=== PATIENT | male | born 1945 | race Caucasian/White ===

== ENCOUNTER 2024-05-22 08:13 | Inpatient (IN) | payer OTHER ==
[~2024-05-22] VITALS: Ht 182.9 cm; Wt 99.8 kg
[2024-05-22] VITALS (24 sets, daily range): BP systolic 47–107; BP diastolic 26–61
[2024-05-22] MEDS ORDERED: SODIUM CHLORIDE 0.9% 1,000 ML IV ONE ×2 (08:40→10:30)
[2024-05-22] MEDS ORDERED: ASPIRIN 81 MG/TAB PO ONE (08:45)
[2024-05-22] MEDS ORDERED: ONDANSETRON HCl 4 MG/2 ML SDV IV ONE (08:45)
[2024-05-22 09:19] LABS: ALBUMIN 3.5 g/dL (3.2-5.0); BASO% 0.1 % (0-3); BILIRUBIN, TOTAL 1.6 mg/dL (0.2-1.3); CREATININE 1.3 mg/dL (0.7-1.3); HEMATOCRIT 35.2 % (39.0-50.0); IMMATURE GRANULOCYTES 2.4 % (0.0-5.0); LYMPH% 6.7 % (15-41); MEAN CELL VOLUME 92.6 fL CALC (80.0-100.0); MEAN CORPUSCULAR HGB 31.6 pG CALC (26.0-32.0); MEAN CORPUSCULAR HGB CONC 34.1 g/dL CAL (32.0-36.0); MONO% 7.2 % (2-13); NEUT# 23.11 thou/uL (1.82-7.42); NEUT% 83.6 % (42-76); POTASSIUM 4.2 mmol/l (3.5-5.1); RED BLOOD COUNT 3.8 mill/uL (4.70-6.10); RED CELL DISTRI WIDTH 12.8 % (11.5-15.5); TOTAL PROTEIN 6.2 g/dL (6.3-8.2)
[2024-05-22] MEDS ORDERED: Levofloxacin 750 mg Premix 150 ML IV ONE (09:30)
[2024-05-22] MEDS ORDERED: MECLIZINE25 MG PO (11:00)
[2024-05-22] MEDS ORDERED: COZAAR25 MG PO (11:02)
[2024-05-22] MEDS ORDERED: TRILEPTAL150 MG PO (11:03)
[2024-05-22] MEDS ORDERED: VENTOLIN HFA108 MCG IN (11:04)
[2024-05-22] MEDS ORDERED: MONTELUKAST SOD10 MG PO (11:05)
[2024-05-22] MEDS ORDERED: FINASTERIDE5 MG PO (11:05)
[2024-05-22] MEDS ORDERED: METFORMIN500 M2 PO (11:06)
[2024-05-22] MEDS ORDERED: PRAVASTATIN SOD10 MG PO (11:06)
[2024-05-22 12:05] LABS: URINE BILIRUBIN - DIPSTICK Negative (NEGATIVE); URINE BLOOD DIPSTICK Negative (NEGATIVE); URINE GLUCOSE - DIPSTICK Negative (NEGATIVE); URINE KETONE Negative (NEGATIVE); URINE LEUK ESTERASE Negative (NEGATIVE); URINE NITRITE - DIPSTICK Negative (Negative); URINE PH 5.5 (4.5-8.0); URINE PROTEIN - DIPSTICK Negative (NEG-TRACE); URINE UROBILINOGEN - DIPSTICK 0.2 E.U./dL (0.2)
[2024-05-22 12:11] LABS: URINE COLOR Yellow
[2024-05-22] MEDS ORDERED: IPRATROPIUM-Albuterol 0.5MG-2.5MG/3 ML NEB PRN (12:30)
[2024-05-22] MEDS ORDERED: SODIUM CHLORIDE 0.9% 1,000 ML IV PRN (12:30)
[2024-05-22] MEDS ORDERED: ACETAMINOPHEN 325 MG/TAB PO PRN (12:30)
[2024-05-22] MEDS ORDERED: MAGNESIUM HYDROXIDE 30 ML UDC PO PRN (12:30)
[2024-05-22] MEDS ORDERED: IPRATROPIUM-Albuterol 0.5MG-2.5MG/3 ML NEB ONE (12:40)
[2024-05-22] MEDS ORDERED: ALBUTEROL SULFATE 2.5 MG VIAL NEB ONE (12:40)
[2024-05-22] MEDS ORDERED: LEVOTHYROXIN75 MCG PO (13:06)
[2024-05-22] MEDS ORDERED: XOPENEX HFA45 MCG IN (13:06)
[2024-05-22] MEDS ORDERED: TAMSULOSIN0.4 MG PO (13:25)
[2024-05-22] MEDS ORDERED: methylPREDNISolone Sod Succ 40 MG/ML SDV IV SCH (14:00)
[2024-05-22] MEDS ORDERED: TAMSULOSIN HCL 0.4 MG CAP PO SCH (14:00)
[2024-05-22] MEDS ORDERED: AZITHROMYCIN 500 MG in SODIUM CHLORIDE 0.9% 250 ML IV SCH (15:00)
[2024-05-22] MEDS ORDERED: ENOXAPARIN SODIUM 40 MG/0.4 ML SYR SC SCH (21:00)
[2024-05-23] VITALS (10 sets, daily range): BP systolic 90–112; BP diastolic 45–56
[2024-05-23 05:55] LABS: ALBUMIN 3.5 g/dL (3.2-5.0); MAGNESIUM 2.3 mg/dL (1.6-2.3); POTASSIUM 3.5 mmol/l (3.5-5.1); TOTAL PROTEIN 6.1 g/dL (6.3-8.2)
[2024-05-23 05:56] LABS: HEMATOCRIT 37.8 % (39.0-50.0); HEMOGLOBIN 12.9 g/dl (14.0-18.0); IMMATURE GRANULOCYTES 1.6 % (0.0-5.0); MEAN CELL VOLUME 93.3 fL CALC (80.0-100.0); MEAN CORPUSCULAR HGB 31.9 pG CALC (26.0-32.0); MEAN CORPUSCULAR HGB CONC 34.1 g/dL CAL (32.0-36.0); MONO% 1.8 % (2-13); NEUT# 25.71 thou/uL (1.82-7.42); NEUT% 92.6 % (42-76); RED BLOOD COUNT 4.05 mill/uL (4.70-6.10); RED CELL DISTRI WIDTH 12.8 % (11.5-15.5)
[2024-05-23 06:00] LABS: BILIRUBIN, TOTAL 0.7 mg/dL (0.2-1.3)
[2024-05-23] MEDS ORDERED: LEVOTHYROXINE SODIUM 75 MCG/TAB PO SCH (06:00)
[2024-05-23] MEDS ORDERED: OXcarbazepine 150 MG/TAB PO SCH (09:00)
[2024-05-23] MEDS ORDERED: MONTELUKAST SODIUM 10 MG/TAB PO SCH (09:00)
[2024-05-24] VITALS (9 sets, daily range): BP systolic 93–150; BP diastolic 45–73
[2024-05-24 05:41] LABS: BASO% 0.1 % (0-3); HEMATOCRIT 32.2 % (39.0-50.0); IMMATURE GRANULOCYTES 0.8 % (0.0-5.0); LYMPH% 4.4 % (15-41); MEAN CELL VOLUME 94.2 fL CALC (80.0-100.0); MEAN CORPUSCULAR HGB 32.2 pG CALC (26.0-32.0); MEAN CORPUSCULAR HGB CONC 34.2 g/dL CAL (32.0-36.0); NEUT# 20.44 thou/uL (1.82-7.42); NEUT% 90.7 % (42-76); RED BLOOD COUNT 3.42 mill/uL (4.70-6.10)
[2024-05-24 05:49] LABS: ALBUMIN 2.8 g/dL (3.2-5.0); MAGNESIUM 2.2 mg/dL (1.6-2.3); POTASSIUM 3.8 mmol/l (3.5-5.1); TOTAL PROTEIN 5.2 g/dL (6.3-8.2)
[2024-05-24 06:00] LABS: BILIRUBIN, TOTAL 0.4 mg/dL (0.2-1.3)
[2024-05-24] MEDS ORDERED: methylPREDNISolone Sod Succ 40 MG/ML SDV IV SCH (09:00)
[2024-05-24] MEDS ORDERED: predniSONE 20 MG/TAB PO SCH (09:00)
[2024-05-25 04:09] VITALS: BP 110/62
[2024-05-25 06:33] LABS: BASO% 0.1 % (0-3); EOS% 0.3 % (0-8); HEMATOCRIT 31.7 % (39.0-50.0); HEMOGLOBIN 10.7 g/dl (14.0-18.0); IMMATURE GRANULOCYTES 1.4 % (0.0-5.0); LYMPH% 15.8 % (15-41); MEAN CELL VOLUME 94.9 fL CALC (80.0-100.0); MEAN CORPUSCULAR HGB CONC 33.8 g/dL CAL (32.0-36.0); NEUT# 11.77 thou/uL (1.82-7.42); NEUT% 75.4 % (42-76); RED BLOOD COUNT 3.34 mill/uL (4.70-6.10); RED CELL DISTRI WIDTH 13.6 % (11.5-15.5)
[2024-05-25 06:45] LABS: ALBUMIN 2.8 g/dL (3.2-5.0); BILIRUBIN, TOTAL 0.4 mg/dL (0.2-1.3); MAGNESIUM 2.3 mg/dL (1.6-2.3); POTASSIUM 3.7 mmol/l (3.5-5.1); TOTAL PROTEIN 5.2 g/dL (6.3-8.2)
[2024-05-25 07:07] VITALS: BP 129/58
[2024-05-25] MEDS ORDERED: YEAST (S. BOULARDII)(S. CEREVI 250 MG CAP PO SCH (10:00)
[2024-05-25 10:58] VITALS: BP 126/50
[2024-05-25] MEDS ORDERED: PREDNISONE20 MG PO (13:37)
[2024-05-25] MEDS ORDERED: FLORASTOR250 M1 PO (13:37)
[2024-05-25] MEDS ORDERED: DOXYCYCLINE100 MG PO (13:37)
[2024-05-25 14:26] LABS: C. DIFFICILE TOXIN A&B NEGATIVE (NEGATIVE)
== END 2024-05-25 15:02 | DRG 871 ==
LOC: ED 08:13 → ED-I 10:30 → ED 10:49 → MS2 10:50
PROVIDERS: Family Medicine; Nurse Practitioner Family; ADMIT Internal Medicine; ATTEND Internal Medicine
DX: A41.9 Sepsis, unspecified organism (principal); J18.9 Pneumonia, unspecified organism; J44.0 Chronic obstructive pulmonary disease with (acute) lower respiratory infection; J44.1 Chronic obstructive pulmonary disease with (acute) exacerbation; R04.2 Hemoptysis; I95.9 Hypotension, unspecified; R91.1 Solitary pulmonary nodule; K59.00 Constipation, unspecified; I12.9 Hypertensive chronic kidney disease with stage 1 through stage 4 chronic kidney disease, or unspecified chronic kidney disease; E11.22 Type 2 diabetes mellitus with diabetic chronic kidney disease; N18.2 Chronic kidney disease, stage 2 (mild); E03.9 Hypothyroidism, unspecified; N40.0 Benign prostatic hyperplasia without lower urinary tract symptoms; Z20.822 Contact with and (suspected) exposure to COVID-19; Z87.891 Personal history of nicotine dependence
CPT/HCPCS: J0456; J1650